=== PATIENT | female | born 1940 | race Caucasian/White ===

== ENCOUNTER 2025-01-20 11:31 | Inpatient (IN) | payer MEDICARE, MEDICAID ==
[~2025-01-20] VITALS: Ht 167.6 cm; Wt 68.2 kg
--- NOTE | 2025-01-20 12:06 | ED.PDOC ---
GI ASSESSMENT HPI Comments 84-year-old female presented to the emergency department complaining of rectal bleeding patient is on Plavix Chief Complaint: GI Bleed Time Seen by MD: 11:59 Reviewed Notes: Nurses Notes, Medications, Allergies Allergies: Coded Allergies: Penicillins (Verified Allergy, Unknown, 01/20/25) Information Source: Patient, Relative (Child) Mode of Arrival: Wheelchair Timing: Hours Duration: Since onset Quality: None Vomitus: None Stool: Blood Streaked Severity: Mild Recent: Other (Patient is on Plavix) Recent Hx of: GI Bleed, Current anticoag use Pain Location: None Modifying Factors: Nothing Associated sign and symptoms: Hematochezia, Blood in Stool Past Medical History PAST MEDICAL HISTORY: Alzheimer, CAD, Dementia, HTN Surgical History (Other): Surgery right shoulder ACOUSTIC INTELLIGENCE SPECIALIST History: No Pertinent ACOUSTIC INTELLIGENCE SPECIALIST History Family History Family History: Reviewed,noncontributory to illness, No family hx of Cancer, No family hx of DM, No family hx of Heart tanner, No family hx of HTN, No family hx ofKidney tanner, No family hx of Liver tanner, No family hx of Lung tanner, No family hx of Stroke Social History Smoker: Non-Smoker Alcohol: Denies ETOH Use Drugs: Denies Drug Use Lives In: Home Constitutional: denies: chills, diaphoresis, fatigue, fever, malaise, sweats, weakness, others EENTM: denies: blurred vision, double vision, ear bleeding, ear discharge, ear drainage, ear pain, ear ringing, eye pain, eye redness, hearing loss, mouth pain, mouth swelling, nasal discharge, nose bleeding, nose congestion, nose pain, photophobia, tearing, throat pain, throat swelling, voice changes, others Respiratory: denies: cough, hemoptysis, orthopnea, SOB at rest, shortness of breath, SOB with excertion, stridor, wheezing, others Cardiovascular: denies: chest pain, dizzy spells, diaphoresis, Dyspnea on exertion, edema, irregular heart beat, left arm pain, lightheadedness, palpitations, PND, syncope, others Gastrointestinal: reports: blood streaked bowels; denies: abdomen distended, abdominal pain, constipated, diarrhea, dysphagia, difficulty swallowing, hematemesis, melena, nausea, poor appetite, poor fluid intake, rectal bleeding, rectal pain, vomiting, others Genitourinary: denies: abnormal vagina bleeding, burning, dyspareunia, dysuria, flank pain, frequency, hematuria, incontinence, pain, , vagina discharge, urgency, others Neurological: denies: dizziness, fainting, headache, left sided numbness, left sided weakness, numbness, paresthesia, pre-existing deficit, right sided numbness, right sided weakness, seizure, speech problems, tingling, tremors, weakness, others Musculoskeletal: reports: back pain; denies: gout, joint pain, joint swelling, muscle pain, muscle stiffness, neck pain, others Integumetry: denies: bruises, change in color, change in hair/nails, dryness, laceration, lesions, lumps, rash, wounds, others Allergic/Immunocompromised: denies: Difficulty Healing, Frequent Infections, Hives, Itching, others Hematologic/Lymphatic: denies: anemia, blood clots, easy bleeding, easy bruising, swollen glands, others Endocrine: denies: excessive hunger, excessive sweating, excessive thirst, excessive urination, flushing, intolerance to cold, intolerance to heat, unexplained weight gain, unexplained weight loss, others Psychiatric: denies: anxiety, bipolar disorder, depression, hopeless, panic disorder, schizophrenia, sleepless, suicidal, others Unable to Obtain due to: Dementia Physical Exam General Appearance: No Apparent Distress, Normal HEENT: Normal ENT Inspection, PERRL/EOMI Neck: Full Range of Motion, Non-Tender, Normal, Normal Inspection Respiratory: Chest Non-Tender, Lungs Clear, No Accessory Muscle Use, No Respira tory Distress, Normal Breath Sounds Cardiovascular: No Edema, No JVD, No Murmur, No Gallop, Normal Peripheral Pulses, Regular Rate/Rhythm Breast Exam: Deferred Gastrointestinal: No Organomegaly, Non Tender, No Pulsatile Mass, Normal Bowel Sounds, Soft Genitalia: Deferred Pelvic: Deferred Rectal: Deferred Extremities: No calf tenderness, Normal capillary refill, Normal inspection, Normal range of motion, Non-tender, No pedal edema Neurologic: Alert, groundwater programs director II-XII nml as Tested, No Motor Deficits, Normal Affect, Normal Mood, No Sensory Deficits Cerebellar Function: Normal Reflexes: Normal Skin: Dry, Normal Color, Warm Peripheral Pulses: 1+ carotid (R), 1+ carotid (L) Lymphatic: No Adenopathy Was a procedure done? Was a procedure done?: No GI differential Dx Differential Diagnosis: Diverticular disease, Gastritis/PUD, Gastroenteritis, GI hemorrhage, UTI, Dehydration, Diabetes/ DKA, Drug toxicity, Electrolyte Imbalance, Hypovolemia, Ischemic Bowel, Mass, Anemia X-Ray, Labs, Meds, VS Vital Signs Date Time Temp Pulse Resp B/P (MAP) Pulse Ox O2 Delivery O2 Flow Rate FiO2 01/20/25 16:30 77 18 94 Room Air* 0 21 01/20/25 15:59 75 18 100 Room Air 01/20/25 15:59 98.1 75 18 108/50 (69) 100 98.1 01/20/25 11:35 99.3 96 16 93/50 98 99.3 Lab Test 01/20/25 12:10 Range/Units White Blood Count 5.9 4.4-10.8 10^3/uL Red Blood Count 4.79 4.0-5.20 10^6/uL Hemoglobin 14.4 12.2-16.2 g/dL Hematocrit 42.5 36.0-46.0 % Mean Corpuscular Volume 88.7 80.0-100.0 fL Mean Corpuscular Hemoglobin 30.1 28.0-32.0 pg Mean Corpuscular Hemoglobin Concent 33.9 32.0-36.0 g/dL Red Cell Distribution Width 13.9 11.8-14.3 % Platelet Count 86 L 140-450 10^3/uL Mean Platelet Volume 10.1 6.9-10.8 fL Neutrophils (%) (Auto) 53.9 37.0-80.0 % Lymphocytes (%) (Auto) 35.4 10.0-50.0 % Monocytes (%) (Auto) 8.4 0.0-12.0 % Eosinophils (%) (Auto) 1.3 0.0-7.0 % Basophils (%) (Auto) 1.0 0.0-2.0 % Neutrophils # (Auto) 3.2 1.6-8.6 10 ^3/uL Lymphocytes # (Auto) 2.1 0.4-5.4 10 ^3/uL Monocytes # (Auto) 0.5 0-1.3 10 ^3/uL Eosinophils # (Auto) 0.1 0-0.8 10 ^3/uL Basophils # (Auto) 0.1 0-0.2 10 ^3/uL Nucleated Red Blood Cells 0.2 % Prothrombin Time 10.9 9.3-11.8 sec Prothrombin Time INR 1.03 0.9-1.15 Activated Partial Thromboplast Time 29.7 24.5-34.5 SEC Sodium Level 143 136-145 mmol/L Potassium Level 3.7 3.5-5.1 mmol/L Chloride Level 105 98-107 mmol/L Carbon Dioxide Level 27 20-31 mmol/L Anion Gap 11 5-15 Blood Urea Nitrogen 15 9-23 mg/dL Creatinine 1.20 H 0.550-1.02 mg/dL Glomerular Filtration Rate Calc 45 >90 mL/min BUN/Creatinine Ratio 12.5 10.0-20.0 Serum Glucose 147 H 74-106 mg/dL Hemoglobin A1c 5.3 <5.7 % A1C Calcium Level 9.3 8.7-10.4 mg/dL Magnesium Level 1.3 L 1.6-2.6 mg/dL Vitamin B12 Level Pending Vitamin D 25-Hydroxy Pending Thyroid Stimulating Hormone (TSH) 4.83 H 0.55-4.78 uIU/mL Current Medications Medications (Trade) Dose Ordered Sig/Wyatt Route Start Time Stop Time Status Last Admin Sodium Chloride 500 ml @ 500 mls/hr Q1H ONCE IV 01/20/25 12:00 01/20/25 12:59 DC 01/20/25 12:23 Sodium Chloride 1,000 ml @ 150 mls/hr Q6H40M ONCE IV 01/20/25 12:00 01/20/25 17:56 DC 01/20/25 13:22 Magnesium Sulfate/ Dextrose 100 ml @ 100 mls/hr Q1H IV 01/20/25 14:30 01/20/25 17:29 DC 01/20/25 15:37 X-Ray, Labs, Meds, VS Comment 84-year-old patient came in because of possible GI bleeding CBCnormal INR 1.03 Magnesium 1.3 Blood sugar of 147 GFR at 45 Patient will be admitted for further care actually she had a bloody diarrhea for the past three days Time of 1ST Reevaluation: 11:45 Reevaluation 1ST: Unchanged Time of 2ND Reevaluation: 22:12 Reevaluation 2ND: Unchanged Patient Education/Counseling: Diagnosis, Treatment, Prognosis, Need For Follow Up Family Education/Counseling: Diagnosis, Treatment, Prognosis, Need For Follow Up, No Family Present SEPSIS Sepsis Screen Date sepsis recognized/suspect: Jan 20, 2025 Time Sepsis recognized/suspect: 8 Recent Procedure: No On Antibiotic Therapy: No Respiratory Rate >20: No Heart Rate >90: No Temp<36 C (96.8 F) or >38.3 C: No SBP <90 or MAP <65 mmHG: No New Acute Mental Status Change: No Is the patient on CPAP, BIPAP,: No Physician Orders Heplock Iv (01/20/25 11:57) Blood Pressure (01/20/25 11:57) Electrocardigram (01/20/25 11:57) Vital Signs Date Time Temp Pulse Resp B/P (MAP) Pulse Ox O2 Delivery O2 Flow Rate FiO2 01/20/25 16:30 77 18 94 Room Air* 0 21 01/20/25 15:59 75 18 100 Room Air 01/20/25 15:59 98.1 75 18 108/50 (69) 100 98.1 01/20/25 11:35 99.3 96 16 93/50 98 99.3 Laboratory Tests Test 01/20/25 12:10 White Blood Count 5.9 10^3/uL (4.4-10.8) Medications Medications Dose Ordered Sig/Wyatt Route Start Time Stop Time Status Last Admin Dose Admin Magnesium Sulfate/ Dextrose 100 ml @ 100 mls/hr Q1H IV 01/20/25 14:30 01/20/25 17:29 DC 01/20/25 15:37 Sodium Chloride 500 ml @ 500 mls/hr Q1H ONCE IV 01/20/25 12:00 01/20/25 12:59 DC 01/20/25 12:23 Sodium Chloride 1,000 ml @ 150 mls/hr Q6H40M ONCE IV 01/20/25 12:00 01/20/25 17:56 DC 01/20/25 13:22 Departure 1 Departure Time of Disposition: 15:55 Impression: Primary Impression: Rectal bleeding Additional Impressions: Hypomagnesemia CAD S/P percutaneous coronary angioplasty Disposition: 09 ADMITTED INPATIENT Admit to: [facility] Condition: Fair Critical Care Note Critical Care Time?: No Stability Stability form required: Yes Unstable for transfer: Telemetry monitoring (Telemetry monitoring required) Heart Score Heart Score: Heart Score Response (Comments) Value History N/A 0 EKG N/A 0 Age >65 2 Risk Factors 1 or 2 risk factors 1 Troponin N/A 0 Total 3 PJ BETHEA MD Jan 20, 2025 12:06
[2025-01-20] MEDS: SODIUM CHLORIDE 0.9% 500 ML IV ONE (12:23)
[2025-01-20 12:48] LABS: Chloride 105 mmol/L (98-107); Potassium 3.7 mmol/L (3.5-5.1); Sodium 143 mmol/L (136-145)
[2025-01-20 12:49] LABS: Anion Gap 11 (5-15); Calcium 9.3 mg/dL (8.7-10.4); Carbon Dioxide 27 mmol/L (20-31)
[2025-01-20 12:53] LABS: INR 1.03 (0.9-1.15); Partial Thromboplastin Time 29.7 SEC (24.5-34.5); Prothrombin Time 10.9 sec (9.3-11.8)
[2025-01-20 12:54] LABS: BUN/Creatinine Ratio 12.5 (10.0-20.0); Blood Urea Nitrogen 15 mg/dL (9-23)
[2025-01-20 13:08] LABS: Glucose 147 mg/dL (74-106); Magnesium 1.3 mg/dL (1.6-2.6)
[2025-01-20 13:19] LABS: Hematocrit 42.5 % (36.0-46.0); Hemoglobin 14.4 g/dL (12.2-16.2); Mean Corpuscular Hemoglobin 30.1 pg (28.0-32.0); Mean Corpuscular Volume 88.7 fL (80.0-100.0); Nucleated Red Blood Cells % 0.2 %
[2025-01-20] MEDS: SODIUM CHLORIDE 0.9% 1,000 ML IV ONE ×2 (13:22→17:45)
[2025-01-20] MEDS: MAGNESIUM SULFATE 1GM/100ML 100 ML IV SCH (14:49)
[2025-01-20 16:30] VITALS: PULSE 77; RESP 18; O2SAT 94
--- NOTE | 2025-01-20 17:42 | DVHHPRES ---
History of Present Illness Resident Creating Document: LUCY DESAI History of Present Illness Annika Hess is a 84-year-old female patient who presents to the ED with chief complaint of chronic diarrhea which has been occurring for over a year, but decided to come to the ED due to presenting black tarry stool the day of her admission. Patient reports that she only has one bowel movement a day and she describes it more as bowel incontinence, and started wearing diapers one year ago. Patient also reports unintentional weight loss of 10 lb in the past month associated with decreased appetite. She was recently diagnosed with Alzheimer's dementia. Does not have any other complaints. Past medical history: Hypertension, dyslipidemia, diabetes, newly diagnosed Alzheimer's dementia, [place] 30 years ago with stent placement, urinary and bowel incontinence Surgical history: EGD and colonoscopy approximately 10 years ago which was within normal limits. PCI 30 years ago Family history: Father has history of cancer (unknown) Social history: Lives in [place] with boyfriend (next of kin is daughter). Ex tobacco abuse (40 pack-year history of smoking) quit in 2008. Denies current tobacco, alcohol and other drug abuse Allergies: Denies Home medication: Nifedipine, enalapril, baclofen, magnesium, potassium, donepezil, clopidogrel, citalopram Patient seen and examined at bedside. Currently has no new complaints. Was admitted for further evaluation. Past Medical History Per HPI Past Surgical History Per HPI Family History Per HPI Past Social History Per HPI Review of Systems Review of Systems Per HPI Allergies: Coded Allergies: Penicillins (Verified Allergy, Unknown, 01/20/25) Exam Vital Signs Vital Signs Date Time Temp Pulse Resp B/P (MAP) Pulse Ox O2 Delivery O2 Flow Rate FiO2 01/20/25 15:59 75 18 100 Room Air 01/20/25 15:59 98.1 108/50 (69) 98.1 Exam Patient lying in bed, in no acute distress General: Lucid, afebrile, mucosae are moist Cardiovascular: Normal S1 and S2. No murmurs, gallops or rubs Respiratory: Normal ventilation mechanics. Clear lung sounds on auscultation Abdomen: Soft, nontender, no organomegaly, normal bowel sounds MSK/skin: Mobilizes 4 limbs. Skin is dry and warm Neurological: Oriented in 3 spheres. No motor no sensitive deficits. Pupils are isocoric and reactive Labs/Xrays Labs Test 10/26/25 12:10 Range/Units White Blood Count 5.9 4.4-10.8 10^3/uL Red Blood Count 4.79 4.0-5.20 10^6/uL Hemoglobin 14.4 12.2-16.2 g/dL Hematocrit 42.5 36.0-46.0 % Mean Corpuscular Volume 88.7 80.0-100.0 fL Mean Corpuscular Hemoglobin 30.1 28.0-32.0 pg Mean Corpuscular Hemoglobin Concent 33.9 32.0-36.0 g/dL Red Cell Distribution Width 13.9 11.8-14.3 % Platelet Count 86 L 140-450 10^3/uL Mean Platelet Volume 10.1 6.9-10.8 fL Neutrophils (%) (Auto) 53.9 37.0-80.0 % Lymphocytes (%) (Auto) 35.4 10.0-50.0 % Monocytes (%) (Auto) 8.4 0.0-12.0 % Eosinophils (%) (Auto) 1.3 0.0-7.0 % Basophils (%) (Auto) 1.0 0.0-2.0 % Neutrophils # (Auto) 3.2 1.6-8.6 10 ^3/uL Lymphocytes # (Auto) 2.1 0.4-5.4 10 ^3/uL Monocytes # (Auto) 0.5 0-1.3 10 ^3/uL Eosinophils # (Auto) 0.1 0-0.8 10 ^3/uL Basophils # (Auto) 0.1 0-0.2 10 ^3/uL Nucleated Red Blood Cells 0.2 % Prothrombin Time 10.9 9.3-11.8 sec Prothrombin Time INR 1.03 0.9-1.15 Activated Partial Thromboplast Time 29.7 24.5-34.5 SEC Sodium Level 143 136-145 mmol/L Potassium Level 3.7 3.5-5.1 mmol/L Chloride Level 105 98-107 mmol/L Carbon Dioxide Level 27 20-31 mmol/L Anion Gap 11 5-15 Blood Urea Nitrogen 15 9-23 mg/dL Creatinine 1.20 H 0.550-1.02 mg/dL Glomerular Filtration Rate Calc 45 >90 mL/min BUN/Creatinine Ratio 12.5 10.0-20.0 Serum Glucose 147 H 74-106 mg/dL Calcium Level 9.3 8.7-10.4 mg/dL Magnesium Level 1.3 L 1.6-2.6 mg/dL SEPSIS Sepsis Screen Date sepsis recognized/suspect: Jan 20, 2025 Time Sepsis recognized/suspect: 1137 Recent Procedure: No On Antibiotic Therapy: No Respiratory Rate >20: No Heart Rate >90: No Temp<36 C (96.8 F) or >38.3 C: No SBP <90 or MAP <65 mmHG: No New Acute Mental Status Change: No Is the patient on CPAP, BIPAP,: No Physician Orders Heplock Iv (01/20/25 11:57) Blood Pressure (01/20/25 11:57) Electrocardigram (01/20/25 11:57) Sodium Chloride 0.9% (01/20/25 12:00) Admit (01/20/25 17:36) Code Status (01/20/25 17:36) Ondansetron Hcl (Zofran) (01/20/25 17:45) Complete Blood Count (01/21/25 04:00) Comprehensive Metabolic Panel (01/21/25 04:00) Npo (Nothing By Mouth) Diet (01/20/25 Dinner) Echo 2d Mode Cardiac Dop (01/20/25 17:36) Oxygen By Nasal Cannula (01/20/25 17:36) Stat Ekg For Chest Pain (01/20/25 17:36) Notify Md Of Changes From Base (01/20/25 17:36) Chemical Plant Operator Supervisor For 24 Hours (01/20/25 17:36) Emergency Dysrhythmia Protocol (01/20/25 17:36) Rhythm Strips Once Every Shift (01/20/25 17:36) Ct Ab Pel Wo Con-No Oral Or Iv (01/20/25 17:36) Vitamin D, 25-Hydroxy (01/20/25 17:36) Vitamin B12 (01/20/25 17:36) Urinalysis (01/20/25 17:36) Thyroid Stimulating Hormone (01/20/25 17:36) Phosphorus (01/20/25 17:36) Magnesium (01/20/25 17:36) Lipid Panel (01/20/25 17:36) Hemoglobin A1c (10/26/25 17:36) Drug Screen (01/20/25 17:36) Pantoprazole (Protonix) (01/20/25 17:45) Pantoprazole (Protonix) (01/20/25 22:00) NS (01/20/25 17:45) NS (01/20/25 17:45) Vital Signs Date Time Temp Pulse Resp B/P (MAP) Pulse Ox O2 Delivery O2 Flow Rate FiO2 01/20/25 15:59 75 18 100 Room Air 01/20/25 15:59 98.1 75 18 108/50 (69) 100 98.1 01/20/25 11:35 99.3 96 16 93/50 98 99.3 Laboratory Tests Test 01/20/25 12:10 White Blood Count 5.9 10^3/uL (4.4-10.8) Medications Medications Dose Ordered Sig/Wyatt Route Start Time Stop Time Status Last Admin Dose Admin Magnesium Sulfate/ Dextrose 100 ml @ 100 mls/hr Q1H IV 01/20/25 14:30 01/20/25 17:29 DC 01/20/25 15:37 100 MLS/HR Sodium Chloride 500 ml @ 500 mls/hr Q1H ONCE IV 01/20/25 12:00 01/20/25 12:59 DC 01/20/25 12:23 500 MLS/HR Sodium Chloride 1,000 ml @ 150 mls/hr Q6H40M ONCE IV 01/20/25 12:00 01/20/25 18:39 01/20/25 13:22 150 MLS/HR Assessment/Plan Assessment/Plan ASSESSMENT Probable GI bleed Thrombocytopenia MAC hemodynamically mediated (VMN) Hypertension Dyslipidemia Diabetes Newly diagnosed Alzheimer's dementia Coronary artery disease with history of [place] stent placement 30 years ago urinary and bowel incontinence history of tobacco abuse (40 pack-year history of smoking) Hypomagnesemia PLAN Indicated NPO Discontinued clopidogrel Ordered GI evaluation. Patient has unintentional weight loss. Does have history of completing colonoscopy/EGD approximately 10 years ago which was within normal limits Ordered stool occult blood Currently on IV fluids Patient admitted to telemetry Replenish magnesium Goals of care discussed with patient for over 18 minutes: Full code status (even though patient has diagnosis of Alzheimer's dementia, patient is oriented in all spheres in is capable of making her own decisions) Discussed plan with Dr. Daly, patient and nurses: Patient will be admitted to telemetry, consulted GI for eventual endoscopies. Patient does not have any severe anemia at this time. Indicated IV fluids due to MAC. Patient has poor prognosis Plan discussed with: Patient, Other (Nurses) My Orders Orders - LUCY DESAI RESIDENT Procedure Category Date Status Time Admit ADMIT 01/20/25 Verified 17:36 Code Status CODE 01/20/25 Verified 17:36 Ondansetron Hcl PHA 01/20/25 Verified (Zofran) 17:45 Complete Blood Count LAB 01/21/25 Verified 04:00 Comprehensive LAB 01/21/25 Verified Metabolic Panel 04:00 Npo (Nothing By DIET 01/20/25 Verified Mouth) Diet Dinner Echo 2d Mode Cardiac US 01/20/25 Verified DOP 17:36 Oxygen By Nasal RT 01/20/25 Verified Cannula 17:36 Stat Ekg For Chest [facility] 01/20/25 Verified Pain 17:36 Notify Md Of Changes [facility] 01/20/25 Verified From Base 17:36 Chemical Plant Operator Supervisor For [facility] 01/20/25 Verified 24 Hours 17:36 Emergency Dysrhythmia [facility] 01/20/25 Verified Protocol 17:36 Rhythm Strips Once [facility] 01/20/25 Verified Every Shift 17:36 Ct Ab Pel Wo Con-No CT 01/20/25 Verified Oral Or Iv 17:36 Vitamin D, 25-Hydroxy LAB 01/20/25 Verified 17:36 Vitamin B12 LAB 01/20/25 Verified 17:36 Urinalysis LAB 01/20/25 Verified 17:36 Thyroid Stimulating LAB 01/20/25 Verified Hormone 17:36 Phosphorus LAB 01/20/25 Verified 17:36 Magnesium LAB 01/20/25 Verified 17:36 Lipid Panel LAB 01/20/25 Verified 17:36 Hemoglobin A1c LAB 01/20/25 Verified 17:36 Drug Screen LAB 01/20/25 Verified 17:36 Pantoprazole PHA 01/20/25 Verified (Protonix) 17:45 Pantoprazole PHA 01/20/25 Verified (Protonix) 22:00 NS PHA 01/20/25 Verified 17:45 NS PHA 01/20/25 Verified 17:45 Date of Service: Jan 20, 2025 Billing Provider: HALINA DALY MD Common Visit Codes: [id number] INP/OBS CARE (HIGH) Secondary Visit Codes: [id number] CARE PLAN 30 MINUTES LUCY DESAI RESIDENT Jan 20, 2025 17:42
[2025-01-20] MEDS: SODIUM CHLORIDE 0.9% 1,000 ML IV SCH (17:45)
[2025-01-20] MEDS ORDERED: ONDANSETRON HCL 4 MG/2 ML VIAL IV PRN (17:45)
[2025-01-20] MEDS: PANTOPRAZOLE 40 MG/10 ML VIAL INJ IV ONE (17:45)
--- NOTE | 2025-01-20 18:28 | DVH ---
EXAM: CT CT AB PEL WO CON-NO ORAL OR IV INDICATION: GI bleed TECHNIQUE: Volumetric multidetector CT images of the abdomen and pelvis were obtained without contras t. All CT scans at this facility use dose modulation, iterative reconstruction, and/or weight based d osing when appropriate to reduce radiation dose to as low as reasonably achievable. COMPARISON: None FINDINGS: [LOWER CHEST]: The partially visualized lung bases are clear without a pleural effusion. The cardiac size is normal without pericardial effusion. [LIVER]: Normal hepatic size without suspicious focal lesion. [GALLBLADDER AND BILIARY TREE]: Layering gallstone [SPLEEN]: Unremarkable. [PANCREAS]: Unremarkable. [ADRENAL GLANDS]: Mild left adrenal gland thickening [KIDNEYS]: No hydronephrosis. No nephroureterolithiasis. No suspicious focal lesion. [BLADDER]: Unremarkable for the degree distention. [REPRODUCTIVE ORGANS]: Unremarkable. [BOWEL/MESENTERY]: Stomach is normal. No CT evidence of bowel obstruction. Normal appendix. [ASCITES]: Absent [LYMPHADENOPATHY]: No pathologically enlarged lymph nodes by CT size criteria [VASCULATURE]: Infrarenal abdominal aortic fusiform aneurysm dilation measuring 3.5 cm. [ABDOMINAL WALL]: Unremarkable. [MUSCULOSKELETAL]: No acute fracture or aggressive focal osseous lesion. Multifocal degenerative harris ge of the visualized spine. IMPRESSION: 1. No CT evidence of an acute abdominal/pelvic process. 2. Infrarenal abdominal aortic fusiform aneurysm dilation measuring 3.5 cm.
--- NOTE | 2025-01-20 18:33 | DVH ---
CHEST RADIOGRAPH Indication: GI bleed Technique: Single frontal view of the chest was obtained Comparison: None FINDINGS: Lines and Tubes: None Lungs: No focal consolidation. Pleura: No effusion. No pneumothorax. Cardiomediastinal contours: Unremarkable Bones: No acute osseous abnormality. IMPRESSION: 1. No acute cardiopulmonary disease.
[2025-01-20 18:39] LABS: Triglycerides 106.0 mg/dL (< 150)
[2025-01-20 18:40] LABS: Magnesium 1.9 mg/dL (1.6-2.6)
[2025-01-20 18:41] LABS: Cholesterol 148.0 mg/dL (< 200)
[2025-01-20 18:42] LABS: HDL Cholesterol 67.0 mg/dL (40-59)
[2025-01-20] MEDS ORDERED: BACLOFEN 10 MG TAB PO PRN (21:15)
[2025-01-20 21:20] VITALS: BP 166/91; PULSE 76; RESP 18; TEMP 98.7; O2SAT 94
[2025-01-20 22:16] VITALS: BP 146/60; PULSE 67; RESP 17; TEMP 97; O2SAT 96
[2025-01-20] MEDS ORDERED: ATOR40TA52 PO (22:48)
[2025-01-20] MEDS ORDERED: BACL10TA PO (22:48)
[2025-01-20] MEDS ORDERED: CITA-77 PO (22:48)
[2025-01-20] MEDS ORDERED: MAGN241.6 PO (22:48)
[2025-01-20] MEDS ORDERED: CLOP75TA70 PO (22:48)
[2025-01-20] MEDS ORDERED: NIFE10CA52 PO (22:48)
[2025-01-20] MEDS ORDERED: DONE1TAB88 PO (22:48)
[2025-01-20] MEDS ORDERED: ENAL1TAB48 PO (22:48)
[2025-01-20] MEDS: PANTOPRAZOLE 40 MG/10 ML VIAL INJ IV SCH (22:50)
[2025-01-20] MEDS: ENALAPRIL MALEATE 2.5 MG TAB PO SCH (22:54)
[2025-01-20] MEDS: DONEPEZIL HYDROCHLORIDE 5 MG TAB PO SCH (22:54)
[2025-01-20 23:42] LABS: Urine Protein, UAD Negative (Negative)
[2025-01-21] VITALS (8 sets, daily range): BP systolic 119–151; BP diastolic 57–83; PULSE 66–87; RESP 17–20; TEMP 97.5–99.2; O2SAT 93–97
[2025-01-21] LABS: Amphetamine Screen, Urine Neg (NEGATIVE); Barbiturate Scree,Urine Neg (NEGATIVE); Benzodiazephine Screen, Urine Neg (NEGATIVE); Cannabinoid Screen, Urine Neg (NEGATIVE); Cocaine Screen, Urine Neg (NEGATIVE); Opiate Scree,Urine Neg (NEGATIVE); Phencyclidine Screen, Urine Neg (NEGATIVE)
[2025-01-21 06:27] LABS: Hematocrit 37.6 % (36.0-46.0); Hemoglobin 13.1 g/dL (12.2-16.2); Mean Corpuscular Hemoglobin 30.8 pg (28.0-32.0); Mean Corpuscular Volume 88.5 fL (80.0-100.0); Nucleated Red Blood Cells % 0.3 %
[2025-01-21 06:52] LABS: Alanine Aminotransferase 12 U/L (7-40); Alkaline Phosphatase 65 U/L (46-116); Anion Gap 11 (5-15); BUN/Creatinine Ratio 16.5 (10.0-20.0); Blood Urea Nitrogen 15 mg/dL (9-23); Calcium 8.7 mg/dL (8.7-10.4); Carbon Dioxide 26 mmol/L (20-31); Potassium 3.8 mmol/L (3.5-5.1); Sodium 144 mmol/L (136-145); Total Protein 6.3 g/dL (5.7-8.2)
[2025-01-21 06:53] LABS: Albumin 3.7 g/dL (3.2-4.8); Bilirubin, Total 0.8 mg/dL (0.2-1.0)
[2025-01-21 07:05] LABS: Chloride 107 mmol/L (98-107); Glucose 109 mg/dL (74-106)
--- NOTE | 2025-01-21 08:28 | DVHPNRES ---
Progress Note Date Seen: Jan 21, 2025 Resident Creating Document: SPARKLE FULLER RESIDENT Medical Necessity Reason Pt with a Central, PICC or Fol: No Subjective Review of Systems Annika Hess is an 84-year-old female with past medical history of hypertension, diabetes, dyslipidemia, newly diagnosed Alzheimer's dementia, [place] 30 years ago s/p stent placement, urinary and bowel incontinence who came to the ED with a chief complaint of chronic diarrhea since almost 1 year, but patient came to the ED as she had black tarry stool this morning. Patient reports that she only has one bowel movement a day and she describes it more as bowel incontinence, and started wearing diapers one year ago. Patient also reports unintentional weight loss of 10 lb in the past month associated with decreased appetite. She was recently diagnosed with Alzheimer's dementia. GI evaluated the patient and order for stool occult blood and scheduled the patient for colonoscopy. Past medical history: Hypertension, dyslipidemia, diabetes, newly diagnosed Alzheimer's dementia, [place] 30 years ago s/p stent placement, urinary and bowel incontinence Past surgical history: EGD and colonoscopy about 10 years ago (normal), PCI 30 years ago Home medications: Past Hospitalization: Social & Personal history: Lives with boyfriend and daughter Smoking: Ex tobacco abuse 40 pack year history of smoking, quit in 2008 Alcohol: Denies Drugs: Denies Allergies: Coded Allergies: Penicillins (Verified Allergy, Unknown, 01/20/25) Patient seen and examined at bedside. Patient is alert and oriented to time, place person and responding to all questions. Eyes: No Pain, No Vision change, No Conjunctivae inflammation, No Eyelid inflammation, No Redness ENT: No Ear pain, No Ear discharge, No Nose pain, No Nose discharge, No Nose congestion, No Mouth pain, No Mouth swelling, No Throat pain, No Throat swelling Cardiovascular: No Chest Pain, No Palpitations, No Orthopnea, No Paroxysmal No Dyspnea, No Edema, No Lt Headedness Respiratory: No Cough, No Dry, No Shortness of breath, No SOB with exertion, No Wheezing, No Hemoptysis, No Pleuritic Pain, No Sputum Gastrointestinal: No Nausea, No Vomiting, No Abdominal Pain, Diarrhea, No Constipation, Melena, No Hematochezia Genitourinary: No Dysuria, No Frequency, No Incontinence, No Hematuria, No Retention Objective vital signs Vital Sign Date Time Temp Pulse Resp B/P (MAP) Pulse Ox O2 Delivery O2 Flow Rate FiO2 01/21/25 08:00 Room Air* 0 21 01/21/25 05:00 98.1 68 18 119/70 (86) 96 98.1 Total Intake and Output 01/20/25 01/20/25 01/21/25 15:00 23:00 07:00 Intake Total 200 ml 350 ml Balance 200 ml 350 ml medications Current Medications Medications Dose Ordered Sig/Wyatt Route Start Time Stop Time Status Last Admin Dose Admin Ondansetron HCl 4 mg Q4HP PRN IV 01/20/25 17:45 Pantoprazole Sodium 40 mg BID IV 01/20/25 22:00 01/20/25 22:50 40 MG Sodium Chloride 1,000 ml @ 60 mls/hr [id number] IV 01/20/25 17:45 01/20/25 17:45 60 MLS/HR Donepezil HCl 5 mg HS PO 01/20/25 22:00 01/20/25 22:54 5 MG Enalapril Maleate 5 mg Q12HR PO 01/20/25 22:00 01/20/25 22:54 5 MG Nifedipine 30 mg DAILY PO 01/21/25 10:00 Baclofen 5 mg Q8HP PRN PO 01/20/25 21:15 Citalopram Hydrobromide 10 mg DAILY PO 01/21/25 10:00 Examination General Appearance: Cooperative. Well developed. Well nourished. NAD Head Exam: Normal inspection Neck Exam: Normal inspection. Non-tender. Normal alignment Pulmonary/Respiratory: Chest non-tender. Clear bilateral breath sounds, no crackles, no wheezing. Cardiovascular/Chest: Regular rate and rhythm. No murmurs. No JVD. Peripheral Pulses: 2+ Radial (R). 2+ Radial (L). 2+ Pedal (R). 2+ Pedal (L) Abdominal Exam: Normal bowel sounds. Soft. normal abdomen, no visible veins, Nontender. No hepatospenomegaly. No masses Ankle Exam: Negative ankle edema Lower extremities: Negative lower extremity edema Neuro/Mental Status: A&O x4. Coherent. Thoughts/Psych: Normal thought pattern. Appropriate mood and affect. Good judgement and insight Skin Exam: Normal inspection. Normal color. Warm. Dry laboratory and microbiology Laboratory Tests 01/21/25 05:32 Test 10/27/25 05:32 Range/Units Serum Glucose 109 H 74-106 mg/dL Labs and/or images reviewed: Labs reviewed by me, Image(s) reviewed by me Problem List/Assessment/Plan Problem List/Assessment/Plan Probable GI bleed -keep patient on full liquid diet -started IV Protonix 40 mg b.i.d. -ordered school stool occult blood, C diff -GI consult done- scheduled for colonoscopy MAC, likely due to VMN -continue IV fluids NS@60ml/hr -avoid nephrotoxic agents -monitor BMP Hypertension, controlled -continue home medication nifedipine 30 mg daily p.o. and enalapril 5 mg q.12 hours p.o. Dyslipidemia -continue home medication Diabetes mellitus type 2, controlled -continue home medication Newly diagnosed Alzheimer's dementia -continue donepezil 5 mg HS p.o. Coronary artery disease with history of ID, s/p PCI 30 years ago -ordered Echo,pending report Hypomagnesemia -replenished with magnesium citrate 300mg once po Infrarenal abdominal aortic fusiform aneurysmal dilation of 3.5cm -follow up with PCP PUD prophylaxis: Protonix 40 mg IV b.i.d. DVT prophylaxis: Not indicated Goals of care: Full code, discussed for >16 minutes Plan discussed with patient Plan discussed with DR Overton Plan discussed with: Patient Date of Service: Jan 21, 2025 Billing Provider: JOEL DONAHUE MD Common Visit Codes: [id number] INP/OBS CARE(HIGH) SPARKLE FULLER RESIDENT Jan 21, 2025 08:28 JOEL DONAHUE MD Jan 21, 2025 21:05
[2025-01-21] MEDS: CITALOPRAM HYDROBR 20 MG TAB PO SCH (09:51)
[2025-01-21 10:37] LABS: Free T4 (Free Thyroxine) 1.13 ng/dL (0.89-1.76)
--- NOTE | 2025-01-21 17:53 | DVHINCON2 ---
Date of service: Jan 21, [address] Zhou Reason for Consultation Chronic diarrhea fecal incontinence and change in bowel habits History of Present Illness Annika Hess is a 84-year-old female patient who presents to the ED with chief complaint of chronic diarrhea which has been occurring for over a year, but decided to come to the ED due to presenting black tarry stool the day of her admission. Patient reports that she only has one bowel movement a day and she describes it more as bowel incontinence, and started wearing diapers one year ago. Patient also reports unintentional weight loss of 10 lb in the past month associated with decreased appetite. She was recently diagnosed with Alzheimer's dementia. Does not have any other complaints. Past Medical History Past medical history: Hypertension, dyslipidemia, diabetes, newly diagnosed Alzheimer's dementia, [place] 30 years ago with stent placement, urinary and bowel incontinence Past Surgical History Surgical history: EGD and colonoscopy approximately 10 years ago which was within normal limits. PCI 30 years ago Family History: FH: heart attack G8 FATHER FH: liver cancer G8 MOTHER Herpes zoster infection G8 FATHER Family History Family history: Father has history of cancer (unknown) Social History Social history: Lives in [place] with boyfriend (next of kin is daughter). Ex tobacco abuse (40 pack-year history of smoking) quit in 2008. Denies current tobacco, alcohol and other drug abuse Allergies: Coded Allergies: Penicillins (Verified Allergy, Unknown, 01/20/25) Home Meds Reported Medications Nifedipine (PROCARDIA CAPSULE) 10 Mg Cp, 30 MG PO, CAP 01/20/25 Baclofen (Baclofen) 10 Mg Tab, 10 MG PO Q8HP PRN for PAIN SCALE 1 THRU 6 for 30 Days, MG 01/20/25 Citalopram Hydrobromide (Citalopram Hydrobromide) 20 Mg Tab, 1 TAB PO DAILY 01/20/25 Donepezil Hydrochloride (DONEPEZIL HCL) 10 Mg Tab, 1 TAB PO DAILY 01/20/25 Clopidogrel Bisulfate (CLOPIDOGREL) 75 Mg Tab, 1 TAB PO DAILY 01/20/25 Magnesium Oxide (mg Supplement (Magnesium-Oxide) 400 Mg Tab, 1 TAB PO BID 01/20/25 Atorvastatin Calcium (ATORVASTATIN CALCIUM) 40 Mg Tab, 1 TAB PO DAILY 01/20/25 Enalapril Maleate (Enalapril Maleate) 20 Mg Tab, 1 TAB PO BID 01/20/25 Home Meds Allergies: Denies Home medication: Nifedipine, enalapril, baclofen, magnesium, potassium, donepezil, clopidogrel, citalopram Current Medications Current Medications Medications (Trade) Dose Ordered Sig/Wyatt Route PRN Reason Start Time Stop Time Status Last Admin Pantoprazole Sodium (Protonix) 40 mg BID IV 01/20/25 22:00 01/21/25 09:50 Donepezil HCl (Aricept Tablet) 5 mg HS PO 01/20/25 22:00 01/20/25 22:54 Enalapril Maleate (Vasotec Tablet) 5 mg Q12HR PO 01/20/25 22:00 01/21/25 09:50 Nifedipine (Procardia Xl (Time-Release)) 30 mg DAILY PO 01/21/25 10:00 01/21/25 09:50 Baclofen (Liorisal Tablet) 5 mg Q8HP PRN PO FOR MUSCLE SPASM 01/20/25 21:15 Citalopram Hydrobromide (CeleXA TABLET) 10 mg DAILY PO 01/21/25 10:00 01/21/25 09:51 Vital Signs Vital Signs Date Time Temp Pulse Resp B/P (MAP) Pulse Ox O2 Delivery O2 Flow Rate FiO2 01/21/25 17:00 98.5 79 17 145/69 (94) 93 98.5 01/21/25 08:00 Room Air* 0 21 Physical Exam Patient lying in bed, in no acute distress General: Lucid, afebrile, mucosae are moist Cardiovascular: Normal S1 and S2. No murmurs, gallops or rubs Respiratory: Normal ventilation mechanics. Clear lung sounds on auscultation Abdomen: Soft, nontender, no organomegaly, normal bowel sounds MSK/skin: Mobilizes 4 limbs. Skin is dry and warm Neurological: Oriented in 3 spheres. No motor no sensitive deficits. Pupils are isocoric and reactive Labs/Diagnostic Data Labs Test 01/21/25 05:32 01/20/25 23:22 01/20/25 18:10 01/20/25 12:10 Range/Units White Blood Count 5.0 4.4-10.8 10^3/uL Red Blood Count 4.25 4.0-5.20 10^6/uL Hemoglobin 13.1 12.2-16.2 g/dL Hematocrit 37.6 # 36.0-46.0 % Mean Corpuscular Volume 88.5 80.0-100.0 fL Mean Corpuscular Hemoglobin 30.8 28.0-32.0 pg Mean Corpuscular Hemoglobin Concent 34.8 32.0-36.0 g/dL Red Cell Distribution Width 13.6 11.8-14.3 % Platelet Count 73 L 140-450 10^3/uL Mean Platelet Volume 9.3 6.9-10.8 fL Neutrophils (%) (Auto) 36.7 L 37.0-80.0 % Lymphocytes (%) (Auto) 48.2 10.0-50.0 % Monocytes (%) (Auto) 9.8 0.0-12.0 % Eosinophils (%) (Auto) 4.2 0.0-7.0 % Basophils (%) (Auto) 1.1 0.0-2.0 % Neutrophils # (Auto) 1.8 1.6-8.6 10 ^3/uL Lymphocytes # (Auto) 2.4 0.4-5.4 10 ^3/uL Monocytes # (Auto) 0.5 0-1.3 10 ^3/uL Eosinophils # (Auto) 0.2 0-0.8 10 ^3/uL Basophils # (Auto) 0.1 0-0.2 10 ^3/uL Nucleated Red Blood Cells 0.3 % Sodium Level 144 136-145 mmol/L Potassium Level 3.8 3.5-5.1 mmol/L Chloride Level 107 98-107 mmol/L Carbon Dioxide Level 26 20-31 mmol/L Anion Gap 11 5-15 Blood Urea Nitrogen 15 9-23 mg/dL Creatinine 0.91 0.550-1.02 mg/dL Glomerular Filtration Rate Calc 63 >90 mL/min BUN/Creatinine Ratio 16.5 10.0-20.0 Serum Glucose 109 H 74-106 mg/dL Calcium Level 8.7 8.7-10.4 mg/dL Total Bilirubin 0.8 0.2-1.0 mg/dL Aspartate Amino Transferase (AST) 22 13-40 U/L Alanine Aminotransferase (ALT) 12 7-40 U/L Alkaline Phosphatase 65 46-116 U/L Total Protein 6.3 5.7-8.2 g/dL Albumin 3.7 3.2-4.8 g/dL Urine Color Light-yellow Yellow Urine Clarity Clear Clear Urine pH 5.5 5.0-9.0 Urine Specific [place] 1.009 1.001-1.035 Urine Protein Negative Negative Urine Ketones Negative Negative Urine Blood Negative Negative /uL Urine Nitrite Negative Negative Urine Bilirubin Negative Negative Urine Urobilinogen Normal Negative mg/dL Urine Leukocyte Esterase 2+ Negative /uL Urine RBC 1 0 - 4 /hpf Urine Microscopic WBC 17 H 0-5 /HPF Urine Squamous Epithelial Cells Few <5 /hpf Urine Bacteria None seen None Seen /hpf Urine Hyaline Casts Few 0 - 2 /lpf Urine Glucose Normal Normal mg/dL Urine Opiates Screen Neg NEGATIVE Urine Fentanyl Screen Neg NEGATIVE Urine Barbiturates Screen Neg NEGATIVE Urine Phencyclidine Screen Neg NEGATIVE Urine Amphetamines Screen Neg NEGATIVE Urine Benzodiazepines Screen Neg NEGATIVE Urine Cocaine Screen Neg NEGATIVE Urine Cannabinoids Screen Neg NEGATIVE Phosphorus Level 3.3 2.4-5.1 mg/dL Magnesium Level 1.9 1.6-2.6 mg/dL Triglycerides Level 106 < 150 mg/dL Cholesterol Level 148 < 200 mg/dL LDL Cholesterol 63 < 100 mg/dL HDL Cholesterol 67 H 40-59 mg/dL Free Thyroxine (T4) Calculated 1.13 0.89-1.76 ng/dL Total Triiodothyronine (TT3) 1.17 0.60-1.81 ng/mL Prothrombin Time 10.9 9.3-11.8 sec Prothrombin Time INR 1.03 0.9-1.15 Activated Partial Thromboplast Time 29.7 24.5-34.5 SEC Hemoglobin A1c 5.3 <5.7 % A1C Vitamin B12 Level 757 211-911 pg/mL Vitamin D 25-Hydroxy 35.6 30.0-100 ng/mL Thyroid Stimulating Hormone (TSH) 4.83 H 0.55-4.78 uIU/mL CT SCAN ABD PELVIS IMPRESSION: 1. No CT evidence of an acute abdominal/pelvic process. 2. Infrarenal abdominal aortic fusiform aneurysm dilation measuring 3.5 cm. Problems(with codes): (1) Chronic diarrhea (2) Bowel habit changes Plan/Recommendation Plan IV fluid hydration Clear liquid diet Bowel prep Scheduled for colonoscopy Check stool tests Stool for occult blood IV PPI Avoid aspirin NSAIDs Plan discussed with: Patient EMIL HERNÁNDEZ MD Jan 21, 2025 17:53
[2025-01-21] MEDS: GOLYTELY 4L KIT PO ONE (18:24)
[2025-01-22] VITALS (10 sets, daily range): BP systolic 106–149; BP diastolic 49–91; PULSE 67–89; RESP 12–18; TEMP 97.2–98.5; O2SAT 95–99
[2025-01-22 03:07] LABS: COVID19 ANTIGEN SOFIA FIA POSITIVE (NEGATIVE)
[2025-01-22] MEDS: MAGNESIUM CITRATE SOLUTION 300 ML BTL PO ONE (05:45)
[2025-01-22] MEDS: GOLYTELY 4L KIT PO ONE (05:45)
[2025-01-22 07:10] LABS: Hematocrit 40.5 % (36.0-46.0); Hemoglobin 14.1 g/dL (12.2-16.2); Mean Corpuscular Hemoglobin 30.5 pg (28.0-32.0); Mean Corpuscular Volume 87.9 fL (80.0-100.0); Nucleated Red Blood Cells % 0.1 %
[2025-01-22 07:18] LABS: Chloride 105 mmol/L (98-107); Sodium 142 mmol/L (136-145)
[2025-01-22 07:19] LABS: Anion Gap 12 (5-15); Calcium 9.0 mg/dL (8.7-10.4); Carbon Dioxide 25 mmol/L (20-31)
[2025-01-22 07:24] LABS: BUN/Creatinine Ratio 10.1 (10.0-20.0)
[2025-01-22 07:33] LABS: Blood Urea Nitrogen 9 mg/dL (9-23); Glucose 115 mg/dL (74-106); Potassium 3.1 mmol/L (3.5-5.1)
--- NOTE | 2025-01-22 08:25 | ECG ---
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
[2025-01-22] MEDS: POTASSIUM CHLORIDE IV ONE (10:47)
[2025-01-22] MEDS: LIDOCAINE 1% IV ONE (10:47)
[2025-01-22] MEDS: SODIUM CHL 0.9% IV ONE (10:47)
--- NOTE | 2025-01-22 12:13 | DVHSR ---
APPROVED REPORT EXAM: Two-dimensional and M-mode echocardiogram with Doppler and color Doppler. Blood Pressure: 119/70 mmHg INDICATION SOB RISK FACTORS Height: 5'6, Weight: 143 DIMENSIONS LVDd3.4 (3.8-5.7cm)LA (2D) (1.9-4.0cm)Aortic Root3.5 (2.0-3.7cm) LVDs2.0 (2.5-4.0cm)LA (MM) (1.9-4.0cm)Aortic Cusp Exc1.7 (1.5-2.0cm) EF (%) 65.0 (55-70%)Rt. Atrium (1.9-4.0cm)Asc. Aorta cm IVSd1.1 (0.7-1.1cm)RV (D) (1.8-2.4cm) PWd1.1 (0.7-1.1cm) Mitral Valve MitralMitral Stenosis E wave0.46m/sMV Mean GR.mmHg A wave0.64m/sMV Peak GR.mmHg E/A ratio0.72D MVAcm2 DECEL [id number] 1/2 Timems Aortic Valve Aortic ValveAortic Stenosis V11.05m/Cinthia Mean GR.mmHg V21.34m/Cinthia Peak GR.7mmHg LVOT Diameter1.9 (1.8-2.4cm)Doppler AVA2.22cm2 Pulmonic Valve V21.03m/s Tricuspid Valve TR Velocity2.40m/s [id number] Other Information Technically limited study due to body habitus.patient position. PT talking and moving Conclusion lvef 55% RV enlarged atria not well seen limited study no severe valve abnormalities noted
--- NOTE | 2025-01-22 14:44 | DVHPNRES ---
Progress Note Date Seen: Jan 22, 2025 Resident Creating Document: SPARKLE FULLER RESIDENT Medical Necessity Reason Pt with a Central, PICC or Fol: No Subjective Review of Systems Annika Hess is an 84-year-old female with past medical history of hypertension, diabetes, dyslipidemia, newly diagnosed Alzheimer's dementia, [place] 30 years ago s/p stent placement, urinary and bowel incontinence who came to the ED with a chief complaint of chronic diarrhea since almost 1 year, but patient came to the ED as she had black tarry stool this morning. Patient reports that she only has one bowel movement a day and she describes it more as bowel incontinence, and started wearing diapers one year ago. Patient also reports unintentional weight loss of 10 lb in the past month associated with decreased appetite. She was recently diagnosed with Alzheimer's dementia. GI evaluated the patient and order for stool occult blood. Patient underwent colonoscopy today which showed mild scattered diverticular disease most prominent in the sigmoid and trace internal hemorrhoids otherwise essentially completely normal colonoscopy examination up to the cecum and terminal. Past medical history: Hypertension, dyslipidemia, diabetes, newly diagnosed Alzheimer's dementia, [place] 30 years ago s/p stent placement, urinary and bowel incontinence Past surgical history: EGD and colonoscopy about 10 years ago (normal), PCI 30 years ago Social & Personal history: Lives with boyfriend and daughter Smoking: Ex tobacco abuse 40 pack year history of smoking, quit in 2008 Alcohol: Denies Drugs: Denies Allergies: Coded Allergies: Penicillins (Verified Allergy, Unknown, 01/20/25) Patient seen and examined at bedside. Patient is alert and oriented to time, place person and responding to all questions. She complains of 2-3 episodes of diarrhea and bowel incontinence this morning. Eyes: No Pain, No Vision change, No Conjunctivae inflammation, No Eyelid inflammation, No Redness ENT: No Ear pain, No Ear discharge, No Nose pain, No Nose discharge, No Nose congestion, No Mouth pain, No Mouth swelling, No Throat pain, No Throat swelling Cardiovascular: No Chest Pain, No Palpitations, No Orthopnea, No Paroxysmal No Dyspnea, No Edema, No Lt Headedness Respiratory: No Cough, No Dry, No Shortness of breath, No SOB with exertion, No Wheezing, No Hemoptysis, No Pleuritic Pain, No Sputum Gastrointestinal: No Nausea, No Vomiting, No Abdominal Pain, Diarrhea, No Constipation, Melena, No Hematochezia Genitourinary: No Dysuria, No Frequency, No Incontinence, No Hematuria, No Retention 01/22/25- The patient was seen at bedside today. Patient complained of 2-3 episodes of watery diarrhea and bowel incontinence. Her K was 3.1 and she was given 50mEq of potassium iv. Her COVID test came out positive. Patient underwent colonoscopy today which showed mild scattered diverticular disease most prominent in the sigmoid and trace internal hemorrhoids otherwise essentially completely normal colonoscopy examination up to the cecum and terminal. We will resume soft diet and tolerate as advanced and outpatient follow up with Dr Hernandez in 2-4 weeks for biopsy results. Objective vital signs Vital Sign Date Time Temp Pulse Resp B/P (MAP) Pulse Ox O2 Delivery O2 Flow Rate FiO2 01/22/25 09:00 98.0 89 18 110/71 (84) 96 98.0 01/21/25 20:00 Room Air* 0 21 Total Intake and Output 01/21/25 01/21/25 01/22/25 15:00 23:00 07:00 Intake Total 1000 ml 780 ml 0 ml Balance 1000 ml 780 ml 0 ml medications Current Medications Medications Dose Ordered Sig/Wyatt Route Start Time Stop Time Status Last Admin Dose Admin Ondansetron HCl 4 mg Q4HP PRN IV 01/20/25 17:45 Pantoprazole Sodium 40 mg BID IV 01/20/25 22:00 01/22/25 10:46 40 MG Sodium Chloride 1,000 ml @ 60 mls/hr [id number] IV 01/20/25 17:45 01/21/25 13:18 60 MLS/HR Donepezil HCl 5 mg HS PO 01/20/25 22:00 01/21/25 22:20 5 MG Enalapril Maleate 5 mg Q12HR PO 01/20/25 22:00 01/21/25 22:20 5 MG Nifedipine 30 mg DAILY PO 01/21/25 10:00 01/21/25 09:50 30 MG Baclofen 5 mg Q8HP PRN PO 01/20/25 21:15 Citalopram Hydrobromide 10 mg DAILY PO 01/21/25 10:00 01/22/25 10:45 10 MG Examination General Appearance: Cooperative. Well developed. Well nourished. NAD Head Exam: Normal inspection Neck Exam: Normal inspection. Non-tender. Normal alignment Pulmonary/Respiratory: Chest non-tender. Clear bilateral breath sounds, no crackles, no wheezing. Cardiovascular/Chest: Regular rate and rhythm. No murmurs. No JVD. Peripheral Pulses: 2+ Radial (R). 2+ Radial (L). 2+ Pedal (R). 2+ Pedal (L) Abdominal Exam: Normal bowel sounds. Soft. normal abdomen, no visible veins, Nontender. No hepatospenomegaly. No masses Ankle Exam: Negative ankle edema Lower extremities: Negative lower extremity edema Neuro/Mental Status: A&O x4. Coherent. Thoughts/Psych: Normal thought pattern. Appropriate mood and affect. Good judgement and insight Skin Exam: Normal inspection. Normal color. Warm. Dry laboratory and microbiology Laboratory Tests 01/22/25 05:49 Test 01/22/25 05:49 Range/Units Serum Glucose 115 H 74-106 mg/dL Labs and/or images reviewed: Labs reviewed by me, Image(s) reviewed by me Problem List/Assessment/Plan Problem List/Assessment/Plan GI bleed likey due to diverticular disease Chronic diarrhea -keep patient on full liquid diet -started IV Protonix 40 mg b.i.d. -ordered school stool occult blood negative, rare stool wbcs -colonoscopy today 01/22/25 Trace internal hemorrhoids otherwise essentially completely normal colonoscopy examination up to the cecum and terminal and Mild scattered diverticular disease most prominent in the sigmoid -resumed soft diet -Questran powder 4gm po daily Acute UTI -ceftriaxone 1gm daily iv MAC, likely due to VMN -continue IV fluids NS@60ml/hr -avoid nephrotoxic agents -monitor BMP Coronary artery disease with history of [place], s/p PCI 30 years ago -Echo with LVEF 55% Hypertension, controlled -continue home medication nifedipine 30 mg daily p.o. and enalapril 5 mg q.12 hours p.o. Dyslipidemia -continue home medication Diabetes mellitus type 2, controlled -continue home medication Newly diagnosed Alzheimer's dementia -continue donepezil 5 mg HS p.o. Hypokalemia, repleted -K today was 3.1- given 50mEq iv KCl rider with lidocaine Hypomagnesemia -replenished with magnesium citrate 300mg once po Infrarenal abdominal aortic fusiform aneurysmal dilation of 3.5cm -follow up with PCP PUD prophylaxis: Protonix 40 mg IV b.i.d. DVT prophylaxis: Not indicated Goals of care: Full code, discussed for >16 minutes Plan discussed with patient Plan discussed with Dr Donahue Plan discussed with: Patient My Orders My Orders Orders - SPARKLE FULLER Procedure Category Date Status Time * Gi D[facility] Specialist CONS 01/21/25 Transmitted 17:18 Electrocardigram EKG 01/22/25 Logged 08:29 Date of Service: Jan 22, 2025 Billing Provider: JOEL DONAHUE MD Common Visit Codes: [id number] INP/OBS CARE(HIGH) SPARKLE FULLER RESIDENT Jan 22, 2025 14:44 JOEL DONAHUE MD Jan 23, 2025 22:54
[2025-01-22] MEDS ORDERED: fentaNYL CITRATE 100 MCG/2 ML VL ONE (15:16)
[2025-01-22] MEDS ORDERED: MIDAZOLAM HCL 2MG/2ML 2ml VIAL (1mg/ml) ONE (15:16)
[2025-01-22] MEDS ORDERED: PROPOFOL 10 MG/ML 20 ML IV ONE (15:21)
--- NOTE | 2025-01-22 15:36 | DVHOP2 ---
Operative Report DATE OF OPERATION: 01/22/25 PROCEDURE: Colonoscopy with cold biopsy. PREOPERATIVE INDICATION: The patient is a 84 -year-old female undergoing colonoscopy for evaluation of chronic diarrhea POSTOPERATIVE DIAGNOSES: 1. Mild scattered diverticular disease most prominent in the sigmoid 2. Trace internal hemorrhoids otherwise essentially completely normal colonoscopy examination up to the cecum and terminal ileum PROCEDURE PERFORMED BY: Emil Hernandez M.D. SCOPE: Olympus videocolonoscope. ASA CLASS: 3 PREOPERATIVE MEDICATIONS: Dr. Naina Dubois PROCEDURE IN DETAIL: After obtaining an informed consent, the patient was placed on left lateral decubitus position. She was then sedated with the above medications. A rectal examination was performed that was normal. The colonoscope was then passed through the anus into the rectosigmoid and through the descending, transverse, and ascending colon up to the cecum with visualization of the appendiceal orifice, base of the cecum and the ileocecal valve. The colonoscope was then withdrawn. The distal 5-10 cm of the terminal ileum were normal No polyps or masses were seen. There was no colitis. Random colon biopsies were obtained to rule out microscopic colitis She had scattered diverticular disease most prominent in the sigmoid. On retroflexion she had trace to 1+ internal hemorrhoids The patient tolerated the procedure well without difficulty. WITHDRAWAL TIME: 6 minutes QUALITY OF THE PREP: [place] Bowel Prep score: 9. COMPLICATIONS : None SPECIMENS: Random colon biopsies DISPOSITION: Transfer back to the floor Stable PLAN: 1. Repeat colonoscopy base on biopsy result likely in 10 years 2. Resume GI soft diet advance as tolerated 3. Outpatient follow up with me in 2-4 weeks to review results and discuss outpatient elective endoscopy 4. Use Imodium 4 mg or Questran 4 g packet p.o. daily for chronic diarrhea EMIL HERNANDEZ MD Jan 22, 2025 15:36
[2025-01-23] VITALS (7 sets, daily range): BP systolic 116–171; BP diastolic 53–78; PULSE 66–81; RESP 14–18; TEMP 97.8–98.3; O2SAT 94–99
[2025-01-23 07:09] LABS: Anion Gap 12 (5-15); Carbon Dioxide 23 mmol/L (20-31); Potassium 3.7 mmol/L (3.5-5.1); Sodium 143 mmol/L (136-145)
[2025-01-23 07:11] LABS: Calcium 8.6 mg/dL (8.7-10.4); Chloride 108 mmol/L (98-107)
[2025-01-23 07:15] LABS: BUN/Creatinine Ratio 12.2 (10.0-20.0); Blood Urea Nitrogen 11 mg/dL (9-23); Glucose 93 mg/dL (74-106)
--- NOTE | 2025-01-23 10:06 | DVHDSRES ---
Discharge Summary Date of Admission Resident Creating Document: SPARKLE FULLER RESIDENT Jan 20, 2025 at 17:36 Date of Discharge: Jan 23, 2025 Admitting Diagnosis Acute GI bleed Labs/Diagnostic Data: Laboratory Results Test 01/23/25 06:06 01/22/25 05:49 01/21/25 22:00 01/21/25 05:32 Sodium Level 143 mmol/L (136-145) Potassium Level 3.7 mmol/L (3.5-5.1) Chloride Level 108 mmol/L (98-107) Carbon Dioxide Level 23 mmol/L (20-31) Anion Gap 12 (5-15) Blood Urea Nitrogen 11 mg/dL (9-23) Creatinine 0.90 mg/dL (0.550-1.02) Glomerular Filtration Rate Calc 64 mL/min (>90) BUN/Creatinine Ratio 12.2 (10.0-20.0) Serum Glucose 93 mg/dL (74-106) Calcium Level 8.6 mg/dL (8.7-10.4) White Blood Count 6.5 10^3/uL (4.4-10.8) Red Blood Count 4.61 10^6/uL (4.0-5.20) Hemoglobin 14.1 g/dL (12.2-16.2) Hematocrit 40.5 % (36.0-46.0) Mean Corpuscular Volume 87.9 fL (80.0-100.0) Mean Corpuscular Hemoglobin 30.5 pg (28.0-32.0) Mean Corpuscular Hemoglobin Concent 34.8 g/dL (32.0-36.0) Red Cell Distribution Width 13.4 % (11.8-14.3) Platelet Count 90 10^3/uL (140-450) Mean Platelet Volume 9.9 fL (6.9-10.8) Neutrophils (%) (Auto) 36.6 % (37.0-80.0) Lymphocytes (%) (Auto) 51.1 % (10.0-50.0) Monocytes (%) (Auto) 8.2 % (0.0-12.0) Eosinophils (%) (Auto) 3.5 % (0.0-7.0) Basophils (%) (Auto) 0.6 % (0.0-2.0) Neutrophils # (Auto) 2.4 10 ^3/uL (1.6-8.6) Lymphocytes # (Auto) 3.3 10 ^3/uL (0.4-5.4) Monocytes # (Auto) 0.5 10 ^3/uL (0-1.3) Eosinophils # (Auto) 0.2 10 ^3/uL (0-0.8) Basophils # (Auto) 0 10 ^3/uL (0-0.2) Nucleated Red Blood Cells 0.1 % Stool for White Cells Rare Total Bilirubin 0.8 mg/dL (0.2-1.0) Aspartate Amino Transferase (AST) 22 U/L (13-40) Alanine Aminotransferase (ALT) 12 U/L (7-40) Alkaline Phosphatase 65 U/L (46-116) Total Protein 6.3 g/dL (5.7-8.2) Albumin 3.7 g/dL (3.2-4.8) Test 01/21/25 02:25 01/20/25 23:22 01/20/25 22:00 01/20/25 18:10 SARS-CoV-2 Antigen (Rapid) Positive (NEGATIVE) Urine Color Light-yellow (Yellow) Urine Clarity Clear (Clear) Urine pH 5.5 (5.0-9.0) Urine Specific [place] 1.009 (1.001-1.035) Urine Protein Negative (Negative) Urine Ketones Negative (Negative) Urine Blood Negative /uL (Negative) Urine Nitrite Negative (Negative) Urine Bilirubin Negative (Negative) Urine Urobilinogen Normal mg/dL (Negative) Urine Leukocyte Esterase 2+ /uL (Negative) Urine RBC 1 /hpf (0 - 4) Urine Microscopic WBC 17 /HPF (0-5) Urine Squamous Epithelial Cells Few /hpf (<5) Urine Bacteria None seen /hpf (None Seen) Urine Hyaline Casts Few /lpf (0 - 2) Urine Glucose Normal mg/dL (Normal) Urine Opiates Screen Neg (NEGATIVE) Urine Fentanyl Screen Neg (NEGATIVE) Urine Barbiturates Screen Neg (NEGATIVE) Urine Phencyclidine Screen Neg (NEGATIVE) Urine Amphetamines Screen Neg (NEGATIVE) Urine Benzodiazepines Screen Neg (NEGATIVE) Urine Cocaine Screen Neg (NEGATIVE) Urine Cannabinoids Screen Neg (NEGATIVE) Stool Occult Blood Negative (Negative) Stool Occult Blood Sample #3 (Negative) Phosphorus Level 3.3 mg/dL (2.4-5.1) Magnesium Level 1.9 mg/dL (1.6-2.6) Triglycerides Level 106 mg/dL (< 150) Cholesterol Level 148 mg/dL (< 200) LDL Cholesterol 63 mg/dL (< 100) HDL Cholesterol 67 mg/dL (40-59) Free Thyroxine (T4) Calculated 1.13 ng/dL (0.89-1.76) Total Triiodothyronine (TT3) 1.17 ng/mL (0.60-1.81) Test 01/20/25 12:10 Prothrombin Time 10.9 sec (9.3-11.8) Prothrombin Time INR 1.03 (0.9-1.15) Activated Partial Thromboplast Time 29.7 SEC (24.5-34.5) Hemoglobin A1c 5.3 % A1C (<5.7) Vitamin B12 Level 757 pg/mL (211-911) Vitamin D 25-Hydroxy 35.6 ng/mL (30.0-100) Thyroid Stimulating Hormone (TSH) 4.83 uIU/mL (0.55-4.78) Other Laboratory Tests 01/23/25 06:06 01/22/25 05:49 Brief Hx & Hospital Course: Annika Hess is an 84-year-old female with past medical history of hypertension, diabetes, dyslipidemia, newly diagnosed Alzheimer's dementia, TX 30 years ago s/p stent placement, urinary and bowel incontinence who came to the ED with a chief complaint of chronic diarrhea since almost 1 year, but patient came to the ED as she had black tarry stool on the day of admission. Patient reported that she only has one bowel movement a day and she described it more as bowel incontinence, and started wearing diapers one year ago. Patient also reported unintentional weight loss of 10 lb in the past month associated with decreased appetite. She was recently diagnosed with Alzheimer's dementia. Patient underwent colonoscopy today which showed mild scattered diverticular disease most prominent in the sigmoid and trace internal hemorrhoids otherwise essentially completely normal colonoscopy examination up to the cecum and terminal ileum. She had a few episode of diarrhea during hospitalisation which resolved with questran. Patient was discharged home in a stable condition. Medications and recommendations were thoroughly explained to her and she demonstrated understanding of the same. She was asked to follow up with Dr. Hernandez in 2-4 weeks for biopsy results. Past medical history: Hypertension, dyslipidemia, diabetes, newly diagnosed Alzheimer's dementia, [place] 30 years ago s/p stent placement, urinary and bowel incontinence Past surgical history: EGD and colonoscopy about 10 years ago (normal), PCI 30 years ago Social & Personal history: Lives with boyfriend and daughter Smoking: Ex tobacco abuse 40 pack year history of smoking, quit in 2008 Alcohol: Denies Drugs: Denies Allergies: Coded Allergies: Penicillins (Verified Allergy, Unknown, 01/20/25) General Appearance: Cooperative. Well developed. Well nourished. NAD Head Exam: Normal inspection Neck Exam: Normal inspection. Non-tender. Normal alignment Pulmonary/Respiratory: Chest non-tender. Clear bilateral breath sounds, no crackles, no wheezing. Cardiovascular/Chest: Regular rate and rhythm. No murmurs. No JVD. Peripheral Pulses: 2+ Radial (R). 2+ Radial (L). 2+ Pedal (R). 2+ Pedal (L) Abdominal Exam: Normal bowel sounds. Soft. normal abdomen, no visible veins, Nontender. No hepatospenomegaly. No masses Ankle Exam: Negative ankle edema Lower extremities: Negative lower extremity edema Neuro/Mental Status: A&O x4. Coherent. Thoughts/Psych: Normal thought pattern. Appropriate mood and affect. Good judgement and insight Skin Exam: Normal inspection. Normal color. Warm. Dry Operations or Procedures 1.PROCEDURE(s): ABPL - CT AB PEL WO CON-NO ORAL OR IV REASON: GI bleed ORDER NUMBER(s): [id number], ACCESSION NUMBER(s): [id number] EXAM: CT CT AB PEL WO CON-NO ORAL OR IV INDICATION: GI bleed TECHNIQUE: Volumetric multidetector CT images of the abdomen and pelvis were obtained without contrast. All CT scans at this facility use dose modulation, iterative reconstruction, and/or weight based dosing when appropriate to reduce radiation dose to as low as reasonably achievable. COMPARISON: None FINDINGS: [LOWER CHEST]: The partially visualized lung bases are clear without a pleural effusion. The cardiac size is normal without pericardial effusion. [LIVER]: Normal hepatic size without suspicious focal lesion. [GALLBLADDER AND BILIARY TREE]: Layering gallstone [SPLEEN]: Unremarkable. [PANCREAS]: Unremarkable. [ADRENAL GLANDS]: Mild left adrenal gland thickening [KIDNEYS]: No hydronephrosis. No nephroureterolithiasis. No suspicious focal lesion. [BLADDER]: Unremarkable for the degree distention. [REPRODUCTIVE ORGANS]: Unremarkable. [BOWEL/MESENTERY]: Stomach is normal. No CT evidence of bowel obstruction. Normal appendix. [ASCITES]: Absent [LYMPHADENOPATHY]: No pathologically enlarged lymph nodes by CT size criteria [VASCULATURE]: Infrarenal abdominal aortic fusiform aneurysm dilation measuring 3.5 cm. [ABDOMINAL WALL]: Unremarkable. [MUSCULOSKELETAL]: No acute fracture or aggressive focal osseous lesion. Multifocal degenerative change of the visualized spine. IMPRESSION: 1. No CT evidence of an acute abdominal/pelvic process. 2. Infrarenal abdominal aortic fusiform aneurysm dilation measuring 3.5 cm. 2.PROCEDURE(s): CXR1 - CHEST XRAY 1 VIEW REASON: GI bleed ORDER NUMBER(s): [id number], ACCESSION NUMBER(s): [id number] CHEST RADIOGRAPH Indication: GI bleed Technique: Single frontal view of the chest was obtained Comparison: None FINDINGS: Lines and Tubes: None Lungs: No focal consolidation. Pleura: No effusion. No pneumothorax. Cardiomediastinal contours: Unremarkable Bones: No acute osseous abnormality. IMPRESSION: 1. No acute cardiopulmonary disease. 3.DATE OF OPERATION: 01/22/25 PROCEDURE: Colonoscopy with cold biopsy. PREOPERATIVE INDICATION: The patient is a 84 -year-old female undergoing colonoscopy for evaluation of chronic diarrhea POSTOPERATIVE DIAGNOSES: 1. Mild scattered diverticular disease most prominent in the sigmoid 2. Trace internal hemorrhoids otherwise essentially completely normal colonoscopy examination up to the cecum and terminal ileum PROCEDURE PERFORMED BY: Renetta Hernandez M.D. SCOPE: Olympus videocolonoscope. ASA CLASS: 3 PREOPERATIVE MEDICATIONS: Dr. Naina Dubois PROCEDURE IN DETAIL: After obtaining an informed consent, the patient was placed on left lateral decubitus position. She was then sedated with the above medications. A rectal examination was performed that was normal. The colonoscope was then passed through the anus into the rectosigmoid and through the descending, transverse, and ascending colon up to the cecum with visualization of the appendiceal orifice, base of the cecum and the ileocecal valve. The colonoscope was then withdrawn. The distal 5-10 cm of the terminal ileum were normal No polyps or masses were seen. There was no colitis. Random colon biopsies were obtained to rule out microscopic colitis She had scattered diverticular disease most prominent in the sigmoid. On retroflexion she had trace to 1+ internal hemorrhoids The patient tolerated the procedure well without difficulty. WITHDRAWAL TIME: 6 minutes QUALITY OF THE PREP: [place] Bowel Prep score: 9. COMPLICATIONS : None SPECIMENS: Random colon biopsies DISPOSITION: Transfer back to the floor Stable PLAN: 1. Repeat colonoscopy base on biopsy result likely in 10 years 2. Resume GI soft diet advance as tolerated 3. Outpatient follow up with me in 2-4 weeks to review results and discuss outpatient elective endoscopy 4. Use Imodium 4 mg or Questran 4 g packet p.o. daily for chronic diarrhea Condition at Discharge: Fair Final Diagnosis/Problems List Acute GI bleed likely due to diverticular disease Chronic diarrhea Acute UTI MAC, likely due to VMN Coronary artery disease with history of [place], s/p PCI 30 years ago Hypertension, controlled Dyslipidemia Diabetes mellitus type 2, controlled Newly diagnosed Alzheimer's dementia Hypokalemia, repleted Hypomagnesemia,repleted Infrarenal abdominal aortic fusiform aneurysmal dilation of 3.5cm Discharge Disposition: Home Discharge Instruct/Medications Diet: Consistent carbohydrate, Cardiac 2g Na,low cholest Activity: No Restrictions, As Tolerated Follow Up/Referral: follow up with GI in 2-4 weeks Medications: Questran powder daily 4gm po Scheduled Atorvastatin Calcium (Atorvastatin Calcium), 1 TAB PO DAILY, (Reported) Cholestyramine (Questran Powder), 4 GM PO DAILY Citalopram Hydrobromide (Citalopram Hydrobromide), 1 TAB PO DAILY, (Reported) Clopidogrel Bisulfate (Clopidogrel), 1 TAB PO DAILY, (Reported) Donepezil Hydrochloride (Donepezil Hcl), 1 TAB PO DAILY, (Reported) Enalapril Maleate (Enalapril Maleate), 1 TAB PO BID, (Reported) Magnesium Oxide (mg Supplement (Magnesium-Oxide), 1 TAB PO BID, (Reported) Scheduled PRN Baclofen (Baclofen), 10 MG PO Q8HP PRN for PAIN SCALE 1 THRU 6, (Reported) Miscellaneous Medications Nifedipine (Procardia Capsule), 30 MG PO, (Reported) Discharge Statement: "Patient was advised to return to the ER or call 911 if any headaches, dizziness, shortness of breath, chest pain, abdominal pain, bleeding, fevers, or worsening of medical condition. Patient was counseled about treatment plan, medications, possible side effects, patientverbalized understanding. All questions were answered to the best of my ability. This discharge took greater then 30 minutes in planning, reviewing documentation, counseling the patient, and discussing with other team members." ASSESSMENT ASSESSMENT Assessment GI bleed, due to diverticular disease Chronic diarrhea Acute UTI MAC, likely due to VMN Date of Service: Jan 23, 2025 Billing Provider: JOEL DONAHUE MD Common Visit Codes: 56351-ZIR/OBS DISCH DAY >30min SPARKLE FULLER RESIDENT Jan 23, 2025 10:06 MOSES BOWERS RESIDENT Jan 23, 2025 16:50 JOEL DONAHUE MD Jan 23, 2025 22:54
[2025-01-23] MEDS ORDERED: CHL4PW PO (10:16)
[2025-01-23] MEDS: CHOLESTYRAMINE 4 GM POWDER PO SCH (12:03)
--- NOTE | 2025-01-23 13:14 | DVHPN2 ---
Progress Note - Dictate Date Seen: Jan 23, 2025 Medical Necessity Reason Pt with a Central, PICC or Fol: No Subjective No new complaints Tolerating diet Colonoscopy showed mild diverticulosis otherwise normal examination Random colon biopsies were obtained. vital signs Vital Sign Date Time Temp Pulse Resp B/P (MAP) Pulse Ox O2 Delivery O2 Flow Rate FiO2 01/23/25 13:00 98.1 66 14 124/53 (76) 94 98.1 01/22/25 20:00 Room Air* 0 21 Total Intake and Output 01/22/25 01/22/25 01/23/25 15:00 23:00 07:00 Intake Total 240 ml 1320 ml Balance 240 ml 1320 ml medications Current Medications Medications Dose Ordered Sig/[place] Route Start Time Stop Time Status Last Admin Dose Admin Ondansetron HCl 4 mg Q4HP PRN IV 01/20/25 17:45 Pantoprazole Sodium 40 mg BID IV 01/20/25 22:00 01/23/25 09:06 40 MG Sodium Chloride 1,000 ml @ 60 mls/hr [id number] IV 01/20/25 17:45 01/21/25 13:18 60 MLS/HR Donepezil HCl 5 mg HS PO 01/20/25 22:00 01/22/25 22:05 5 MG Enalapril Maleate 5 mg Q12HR PO 01/20/25 22:00 01/23/25 09:07 5 MG Nifedipine 30 mg DAILY PO 01/21/25 10:00 01/23/25 09:07 30 MG Baclofen 5 mg Q8HP PRN PO 01/20/25 21:15 Citalopram Hydrobromide 10 mg DAILY PO 01/21/25 10:00 01/23/25 09:07 10 MG Cholestyramine Resin 4 gm DAILY@11 PO 01/23/25 11:00 01/23/25 12:03 4 GM Ceftriaxone Sodium 50 ml @ 100 mls/hr DAILY@09 IV 01/23/25 09:00 01/23/25 09:06 100 MLS/HR objective Patient lying in bed, in no acute distress General: Lucid, afebrile, mucosae are moist Cardiovascular: Normal S1 and S2. No murmurs, gallops or rubs Respiratory: Normal ventilation mechanics. Clear lung sounds on auscultation Abdomen: Soft, nontender, no organomegaly, normal bowel sounds MSK/skin: Mobilizes 4 limbs. Skin is dry and warm Neurological: Oriented in 3 spheres. No motor no sensitive deficits. Pupils are isocoric and reactive laboratory and microbiology Laboratory Tests 01/23/25 06:06 01/22/25 05:49 Test 01/23/25 06:06 Range/Units Serum Glucose 93 74-106 mg/dL Problems(with codes): (1) COVID-19 (2) Bowel habit changes (3) Chronic diarrhea Prognosis Plan Advance diet as tolerated Imodium or Questran Outpt follow up with me in 2-4 weeks to review results Discuss outpatient elective endoscopy and further workup Plan discussed with: Patient EMIL HERNÁNDEZ MD Jan 23, 2025 13:14
--- NOTE | 2025-01-24 07:26 | ECG ---
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
== END 2025-01-23 17:30 | disposition home or self-care (01) | DRG 377 ==
LOC: ER 11:31 → OVERFLOW 17:36 → TELE-WESTW 21:43 → TELE-CENTR 01-22 03:30 → CENTRAL 01-22 23:09
PROVIDERS: ADMIT Internal Medicine; ATTEND Internal Medicine
PROC: 0DBL8ZX Excision of Transverse Colon, Via Natural or Artificial Opening Endoscopic, Diagnostic (ICD-10-PCS; 2025-01-22)
PROC: 0DBN8ZX Excision of Sigmoid Colon, Via Natural or Artificial Opening Endoscopic, Diagnostic (ICD-10-PCS; 2025-01-22)
PROC: 0DBM8ZX Excision of Descending Colon, Via Natural or Artificial Opening Endoscopic, Diagnostic (ICD-10-PCS; 2025-01-22)
PROC: 0DBK8ZX Excision of Ascending Colon, Via Natural or Artificial Opening Endoscopic, Diagnostic (ICD-10-PCS; principal; 2025-01-22 15:11)
DX: K57.31 Diverticulosis of large intestine without perforation or abscess with bleeding (principal); N17.0 Acute kidney failure with tubular necrosis; U07.1 COVID-19; N39.0 Urinary tract infection, site not specified; F02.80 Dementia in other diseases classified elsewhere, unspecified severity, without behavioral disturbance, psychotic disturbance, mood disturbance, and anxiety; E83.42 Hypomagnesemia; D69.6 Thrombocytopenia, unspecified; K52.9 Noninfective gastroenteritis and colitis, unspecified; E11.9 Type 2 diabetes mellitus without complications; G30.9 Alzheimer's disease, unspecified; I10 Essential (primary) hypertension; E87.6 Hypokalemia; K64.8 Other hemorrhoids; I71.43 Infrarenal abdominal aortic aneurysm, without rupture; E78.5 Hyperlipidemia, unspecified; I25.10 Atherosclerotic heart disease of native coronary artery without angina pectoris; Z83.3 Family history of diabetes mellitus; Z82.49 Family history of ischemic heart disease and other diseases of the circulatory system; Z80.0 Family history of malignant neoplasm of digestive organs; Z87.891 Personal history of nicotine dependence; Z88.0 Allergy status to penicillin; I25.2 Old myocardial infarction; Z98.61 Coronary angioplasty status; Z79.899 Other long term (current) drug therapy
CPT/HCPCS: 36415; 71045; 74176; 80048; 80053; 80061; 80307; 81001; 82270; 82306; 82607; 83036; 83735; 84100; 84439; 84443; 84480; 85025; 85048; 85610; 85730; 86850; 86900; 86901; 87426; 93005; 93306; 96360; 96361; G0378; J2003; J2250; J2470; J2704